=== PATIENT | male | born 1985 | race Hispanic/Latino ===

== ENCOUNTER 2019-09-05 11:02 | Emergency (ER) | payer SELFPAY ==
[~2019-09-05 11:02] MED LIST: Sodium Chloride Irrig Solution 250 ML BOT ONE
== END 2019-09-05 13:38 | disposition home or self-care (01) ==
LOC: MADERS 11:02
DX: L03.115 Cellulitis of right lower limb (principal); X50.1XXA Overexertion from prolonged static or awkward postures, initial encounter
CPT/HCPCS: 99282

== ENCOUNTER 2019-12-28 23:43 | Emergency (ER) | payer SELFPAY ==
[2019-12-29] MEDS ORDERED: Diazepam 5 MG TAB ONE (00:18)
[2019-12-29] MEDS ORDERED: Ketorolac Tromethamine 30 MG/ML VIAL ONE (00:18)
== END 2019-12-29 00:55 | disposition home or self-care (01) ==
LOC: MADERS 23:43
DX: S13.9XXA Sprain of joints and ligaments of unspecified parts of neck, initial encounter (principal); X50.0XXA Overexertion from strenuous movement or load, initial encounter; Y99.0 Civilian activity done for income or pay
CPT/HCPCS: 96372; 99283; J1885